=== PATIENT | male | born 1965 | race African-American/Black ===

== ENCOUNTER 2019-07-13 19:04 | Emergency (ER) | payer OTHER ==
--- OUTSIDE RECORDS SUMMARY | 2019-07-13 19:06 | XMS REPORT | Encounter Summary ---
:1965 Author Reason for Visit new patient; physical Instructions 1. History and physical examination, pre-employment Discussion Note RTC for any other concerns; counseled on diet and exercise Patient educational handouts: No information available. Plan of Care Patient Instructions ensure adequate rest, hydration and nutrition Reminders Provider Appointments None recorded. Lab None recorded. Referral None recorded. Procedures None recorded. Surgeries None recorded. Imaging None recorded. Medications No Medications Reported Medications Administered None recorded. Vitals Height Weight BMI Blood Pressure 74 in 225 lbs 6 oz 28.9 kg/m2 135/84 mm[Hg] Lab Results None recorded. Allergies Code Code System Name Reaction Severity Status Onset NKDA Problems None recorded. Procedures Date Name Performed by Revision of Repair of Rotator Cuff Information not available Vaccine List None recorded. Social History Smoking Status Never Smoker Past Encounters 09/15/2018 History and Physical Examination, Pre-employment [employer]: [address], [address], [place] [address], Ph. History of Present Illness Note: pt to clinic for pre-employment physical Review of Systems General Adult ROS Reported By: Patient Constitutional: Constitutional: no fever Cardiovascular: Cardiovascular: no chest pain, no palpitations Respiratory: Respiratory: no cough, no wheezing, no shortness of breath Gastrointestinal: Gastrointestinal: no abdominal pain, no vomiting, no diarrhea Musculoskeletal: Musculoskeletal: no muscle aches, no muscle weakness, no arthralgias/joint pain, no back pain, no swelling in the extremities Integumentary: Skin: no rashes Neurologic: Neurologic: no weakness, no numbness, no dizziness, no headaches Endocrine: Endocrine: no fatigue Physical Exam General Adult Exam - Male Reported By: Patient Constitutional: General Appearance: healthy-appearing, well-nourished, well-developed. Level of Distress: NAD. Ambulation: ambulating normally Psychiatric: Mental Status: active and alert Eyes: Pupils: PERRLA Lungs: Respiratory effort: no dyspnea. Auscultation: breath sounds normal, no wheezing Cardiovascular: Heart Auscultation: RRR, normal S1, normal S2, no murmurs. Pulses including femoral / pedal: normal throughout Abdomen: Bowel Sounds: normal. Inspection and Palpation: soft, non-distended, no tenderness, no guarding Musculoskeletal:: Motor Strength and Tone: normal, normal tone. Joints, Bones , and Muscles: normal movement of all extremities Neurologic: Gait and Station: normal gait. Cranial Nerves: grossly intact. Reflexes: DTRs 2+ bilaterally throughout Skin: Inspection and palpation: no rash Back: Thoracolumbar Appearance: normal curvature Notes: neuro nonfocal
[2019-07-13] MEDS ORDERED: IPRATROPIUM BROM 0.5MG/2.5ML ONE (19:43)
[2019-07-13] MEDS ORDERED: ALBUTEROL 2.5 MG/3 ML NEB SOL ONE (19:43)
[2019-07-13] MEDS ORDERED: IBUPROFEN 400 MG TAB ONE (19:43)
[2019-07-13] MEDS ORDERED: ACETAMINOPHEN 500 MG TAB ONE (19:43)
[2019-07-13] MEDS ORDERED: IBUPROFEN 200 MG TAB PO ONE (19:43)
--- NOTE | 2019-07-13 20:30 | RAD REPORT ---
EXAM DESCRIPTION: RAD - Chest Pa And Lat (2 Views) - 07/13/2019 7:47 pm CLINICAL HISTORY: COUGH, fever, congestion COMPARISON: None. TECHNIQUE: PA and lateral views of the chest were obtained. FINDINGS: The lungs are clear of an acute infiltrate. Minimal nodular focus lower right lung field i s believed be a small granuloma. Heart size is normal and central vasculature is within normal limi ts. No pleural effusion or pneumothorax seen. No acute bony finding noted. No aortic abnormality. IMPRESSION: No acute cardiopulmonary process.
--- NOTE | 2019-07-13 20:36 | ER ---
Nurse's Notes [facility] Name: Dino Gaston Sr Age: 54 yrs Sex: Male : 1965 Arrival Date: 07/13/2019 Time: 19:06 Bed 7 Private MD: Diagnosis: acute bronchitis Presentation: 07/13 19:15 Presenting complaint: Patient states: I have had a cough, congestion and fever for tl1 approx 3 days. My cough is painful and I am coughing up green stuff. Transition of care: patient was not received from another setting of care. Onset of symptoms was July 10, 2019. Risk Assessment: Do you want to hurt yourself or someone else? Patient reports no desire to harm self or others. Initial Sepsis Screen: Does the patient meet any 2 criteria? No. Patient's initial sepsis screen is negative. Does the patient have a suspected source of infection? No. Patient's initial sepsis screen is negative. Care prior to arrival: Medication(s) given: mucinex. 19:15 Method Of Arrival: Ambulatory tl1 19:15 Acuity: AMOR 3 tl1 Triage Assessment: 20:00 General: Appears in no apparent distress. comfortable, Behavior is calm, cooperative, ao appropriate for age. Pain: Complains of pain in chest. EENT: No signs and/or symptoms were reported regarding the EENT system. Neuro: Level of Consciousness is awake, alert, obeys commands, Oriented to person, place, time, situation, Appropriate for age Moves all extremities. Full function Speech is normal. 20:00 Cardiovascular: Heart tones S1 S2 Capillary refill < 3 seconds Patient's skin is warm ao and dry. Respiratory: Reports shortness of breath cough that is Onset: The symptoms/episode began/occurred gradually, the patient has mild shortness of breath. GI: No signs and/or symptoms were reported involving the gastrointestinal system. : No signs and/or symptoms were reported regarding the genitourinary system. Derm: No signs and/or symptoms reported regarding the dermatologic system. Musculoskeletal: No signs and/or symptoms reported regarding the musculoskeletal system. Historical: - Allergies: 19:17 No Known Allergies; tl1 - Home Meds: 19:17 None [Active]; tl1 - PMHx: 19:17 None; tl1 - PSHx: 19:17 shoulder surgery; tumor removal; tl1 - Immunization history:: Adult Immunizations unknown. - Social history:: Smoking status: unknown. - Ebola Screening: : Patient negative for fever greater than or equal to 101.5 degrees Fahrenheit, and additional compatible Ebola Virus Disease symptoms Patient denies exposure to infectious person Patient denies travel to an Ebola-affected area in the 21 days before illness onset. - Family history:: not pertinent. - Hospitalizations: : No recent hospitalization is reported. Screenin:00 Abuse screen: Denies threats or abuse. Denies injuries from another. Nutritional ao screening: No deficits noted. Tuberculosis screening: No symptoms or risk factors identified. Fall Risk None identified. Assessment: 20:00 General: Appears in no apparent distress. comfortable, well groomed, well developed, ao Behavior is calm, cooperative, appropriate for age. Pain: Complains of pain in abdomen Pain does not radiate. Pain currently is 5 out of 10 on a pain scale. Quality of pain is described as Pain began 3 hours ago. Neuro: Level of Consciousness is awake, alert, obeys commands, Oriented to person, place, time, situation, Appropriate for age Moves all extremities. Full function. Cardiovascular: Pulses are all present. Rhythm is regular. Respiratory: Airway is patent Respiratory effort is even, unlabored, Respiratory pattern is regular, symmetrical, Breath sounds are clear bilaterally. GI: No signs and/or symptoms were reported involving the gastrointestinal system. : No signs and/or symptoms were reported regarding the genitourinary system. EENT: No signs and/or symptoms were reported regarding the EENT system. 21:04 Reassessment: DC instructions given to patient patient agree with the POC and to follow ao up with PCP. Pt had no question at this time. Vital Signs: 19:17 BP 133 / 91; Pulse 77; Resp 20; Temp 98.9; Pulse Ox 97% on R/A; Weight 95.25 kg; Height tl1 6 ft. 2 in. (187.96 cm); Pain 6/10; 19:17 Body Mass Index 26.96 (95.25 kg, 187.96 cm) tl1 ED Course: 19:06 Patient arrived in ED. jg7 19:16 Triage completed. tl1 19:18 Boni Lucas MD is Attending Physician. wa 19:18 Arm band placed on right wrist. tl1 19:46 Mariee, Morales, RN is Primary Nurse. ao 20:00 Patient has correct armband on for positive identification. Placed in gown. Bed in low ao position. Call light in reach. Side rails up X 1. Pulse ox on. 20:00 No provider procedures requiring assistance completed. ao 20:35 Flu and/or RSV swab sent to lab. ds4 21:00 Patient did not have IV access during this emergency room visit. Patient maintains SpO2 ao saturation greater than 95% on room air. Administered Medications: 19:49 Drug: Motrin 600 mg Route: PO; ao 21:00 Follow up: Response: No adverse reaction; Pain is decreased ao 19:49 Drug: Albuterol - atroVENT (3:1) (2.5 mg - 0.5 mg) 3 ml Route: Nebulizer; ao 07/14 03:15 Follow up: Response: No adverse reaction ao 07/13 19:50 Drug: Tylenol 1000 mg Route: PO; ao 21:00 Follow up: Response: No adverse reaction ao Outcome: 20:35 Discharge ordered by . rubi 21:00 Discharged to home ambulatory. ao 21:00 Condition: stable 21:00 Discharge instructions given to patient, Instructed on discharge instructions, follow up and referral plans. Demonstrated understanding of instructions, follow-up care, medications, Prescriptions given X 3. 21:04 Patient left the ED. ao Signatures: Brad Carcamo ds4 Maryann Dejesus RN RN tl1 Morales Mariee, RN RN ao Boni Lucas MD MD wa Gutierrez, Jessica jg7
--- NOTE | 2019-07-13 20:36 | EDPHYS ---
Physician Documentation [facility] Name: Dino Gaston Sr Age: 54 yrs Sex: Male : 1965 Arrival Date: 07/13/2019 Time: 19:06 Bed 7 Private MD: ED Physician Boni Lucas HPI: 07/13 20:44 This 54 yrs old Black Male presents to ER via Ambulatory with complaints of Breathing wa Difficulty, Congestion, Flu Symptoms. 20:44 The patient has shortness of breath at rest. wa 20:44 The patient or guardian reports cough, that is constant, with productive sputum, that wa is green, difficulty breathing, flu symptoms, low-grade fever, myalgias. Onset: The symptoms/episode began/occurred 5 day(s) ago. Severity of symptoms: At their worst the symptoms were moderate, in the emergency department the symptoms are unchanged. Modifying factors: The symptoms are alleviated by nothing, the symptoms are aggravated by cough. Associated signs and symptoms: Pertinent positives: rhinorrhea, sore throat, Pertinent negatives: chest pain, diarrhea, fever, vomiting. The patient has not experienced similar symptoms in the past. The patient has not recently seen a physician. has been taking mucinex. Historical: - Allergies: 19:17 No Known Allergies; tl1 - Home Meds: 19:17 None [Active]; tl1 - PMHx: 19:17 None; tl1 - PSHx: 19:17 shoulder surgery; tumor removal; tl1 - Immunization history:: Adult Immunizations unknown. - Social history:: Smoking status: unknown. - Ebola Screening: : Patient negative for fever greater than or equal to 101.5 degrees Fahrenheit, and additional compatible Ebola Virus Disease symptoms Patient denies exposure to infectious person Patient denies travel to an Ebola-affected area in the 21 days before illness onset. - Family history:: not pertinent. - Hospitalizations: : No recent hospitalization is reported. ROS: 20:46 Eyes: Negative for injury, pain, redness, and discharge, Neck: Negative for injury, wa pain, and swelling, Cardiovascular: Negative for chest pain, palpitations, and edema, Abdomen/GI: Negative for abdominal pain, nausea, vomiting, diarrhea, and constipation, Back: Negative for injury and pain, : Negative for injury, bleeding, discharge, and swelling, MS/Extremity: Negative for injury and deformity, Skin: Negative for injury, rash, and discoloration, Neuro: Negative for headache, weakness, numbness, tingling, and seizure, Psych: Negative for depression, anxiety, suicide ideation, homicidal ideation, and hallucinations. 20:46 Constitutional: Positive for body aches, Negative for weight loss. 20:46 ENT: Positive for rhinorrhea, sinus congestion, sore throat, Negative for 20:46 Respiratory: Positive for cough, with green sputum, shortness of breath, at rest. Exam: 20:47 Constitutional: This is a well developed, well nourished patient who is awake, alert, wa and in no acute distress. Head/Face: Normocephalic, atraumatic. Eyes: Pupils equal round and reactive to light, extra-ocular motions intact. Lids and lashes normal. Conjunctiva and sclera are non-icteric and not injected. Cornea within normal limits. Periorbital areas with no swelling, redness, or edema. Neck: Trachea midline, no thyromegaly or masses palpated, and no cervical lymphadenopathy. Supple, full range of motion without nuchal rigidity, or vertebral point tenderness. No Meningismus. Chest/axilla: Normal chest wall appearance and motion. Nontender with no deformity. No lesions are appreciated. Cardiovascular: Regular rate and rhythm with a normal S1 and S2. No gallops, murmurs, or rubs. Normal PMI, no JVD. No pulse deficits. Abdomen/GI: Soft, non-tender, with normal bowel sounds. No distension or tympany. No guarding or rebound. No evidence of tenderness throughout. Back: No spinal tenderness. No costovertebral tenderness. Full range of motion. Skin: Warm, dry with normal turgor. Normal color with no rashes, no lesions, and no evidence of cellulitis. MS/ Extremity: Pulses equal, no cyanosis. Neurovascular intact. Full, normal range of motion. Neuro: Awake and alert, GCS 15, oriented to person, place, time, and situation. Cranial nerves II-XII grossly intact. Motor strength 5/5 in all extremities. Sensory grossly intact. Cerebellar exam normal. Normal gait. Psych: Awake, alert, with orientation to person, place and time. Behavior, mood, and affect are within normal limits. 20:47 ENT: External ear(s): are unremarkable, TM's: are normal, Posterior pharynx: erythema, that is moderate. 20:47 Respiratory: the patient does not display signs of respiratory distress, Respirations: normal, Breath sounds: coarse bilaterally, Respiratory rate: nml Vital Signs: 19: BP 133 / 91; Pulse 77; Resp 20; Temp 98.9; Pulse Ox 97% on R/A; Weight 95.25 kg; Height tl1 6 ft. 2 in. (187.96 cm); Pain 6/10; 19:17 Body Mass Index 26.96 (95.25 kg, 187.96 cm) tl1 MDM: 19:18 Patient medically screened. ia 20:48 Differential Diagnosis: Bronchitis Influenza Upper Respiratory Infection Pharyngitis wa Viral Syndrome Pneumonia. Data reviewed: vital signs, nurses notes. Test interpretation: by ED physician or midlevel provider: CXR nml. Response to treatment: the patient's symptoms have markedly improved after treatment. 07/13 19:29 Order name: Flu ia 07/13 19:29 Order name: Chest Pa And Lat (2 Views) XRAY ia 07/13 20:35 Order name: RAD; Complete Time: 20:49 EDMS Administered Medications: 19:49 Drug: Motrin 600 mg Route: PO; ao 21:00 Follow up: Response: No adverse reaction; Pain is decreased ao 19:49 Drug: Albuterol - atroVENT (3:1) (2.5 mg - 0.5 mg) 3 ml Route: Nebulizer; ao 07/14 03:15 Follow up: Response: No adverse reaction ao 07/13 19:50 Drug: Tylenol 1000 mg Route: PO; ao 21:00 Follow up: Response: No adverse reaction ao Disposition: 07/13/19 20:35 Discharged to Home. Impression: acute bronchitis. - Condition is Stable. - Discharge Instructions: Acute Bronchitis, [id number]. - Prescriptions for Prednisone 20 mg Oral Tablet - take 1 tablet by ORAL route once daily for 5 days; 5 tablet. Albuterol Sulfate 90 mcg/actuation - inhale 1-2 puff by INHALATION route every 4-6 hours; 1 Inhaler. cetirizine 10 mg Oral tablet - take 1 tablet by ORAL route once daily for 5 days; 5 tablet. Ibuprofen 600 mg Oral Tablet - take 1 tablet by ORAL route every 8 hours As needed take with food; 20 tablet. - Medication Reconciliation Form, Thank You Letter, Antibiotic Education, Prescription Opioid Use form. - Follow up: Private Physician; When: 2 - 3 days; Reason: Recheck today's complaints. - Problem is new. - Symptoms have improved. - Notes: take medication as prescribed. return if worsening. follow up with primary care for further check up within 2 days Signatures: Dispatcher [employer] EDKY Maryann Dejesus RN RN tl1 Morales Mariee RN RN ao [facility] wa Corrections: (The following items were deleted from the chart) 21:04 20:35 07/13/2019 20:35 Discharged to Home. Impression: acute bronchitis. Condition is ao Stable. Forms are Medication Reconciliation Form, Thank You Letter, Antibiotic Education, Prescription Opioid Use. Follow up: Private Physician; When: 2 - 3 days; Reason: Recheck today's complaints. Problem is new. Symptoms have improved. wa
[2019-07-13 21:19] VITALS: BP 133/91; TEMP 98.9; O2SAT 97
== END 2019-07-13 21:04 | disposition home or self-care (01) ==
LOC: ER 19:04
DX: J20.9 Acute bronchitis, unspecified (principal)
CPT/HCPCS: 71046; 87804; 94640; 99285

== ENCOUNTER 2024-04-02 15:20 | Emergency (ER) | payer OTHER ==
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
[2024-04-02 16:30] LABS: SARS-CoV-2 Antigen CONTROL BLUE LINE VIS/BG OK; SARS-CoV-2 Antigen Rapid Res Negative (Negative)
--- NOTE | 2024-04-02 16:33 | RAD REPORT ---
EXAM DESCRIPTION: RAD - Chest Pa And Lat (2 Views) - 04/02/2024 3:49 pm CLINICAL HISTORY: Cough;Fever COMPARISON: Chest Pa And Lat (2 Views) dated 07/13/2019 TECHNIQUE: PA and lateral views of the chest were obtained. FINDINGS: The lungs are clear. Heart size is normal and central vasculature is within normal limits. No pleural effusion or pneumothorax seen. No acute bony finding noted. IMPRESSION: No acute cardiopulmonary process.
--- NOTE | 2024-04-02 17:00 | ER ---
Nurse's Notes [facility] Name: Dino Gaston Age: 59 yrs Sex: Male : 1965 Arrival Date: 04/02/2024 Time: 15:20 Bed IW3 Private MD: Diagnosis: Acute upper respiratory infection, unspecified Presentation: 04/02 15:37 Chief complaint: Patient states: Cough and fever X 2 days. Coronavirus screen: At this ld1 time, the client does not indicate any symptoms associated with coronavirus-19. Ebola Screen: No symptoms or risks identified at this time. Initial Sepsis Screen: Does the patient meet any 2 criteria? No. Patient's initial sepsis screen is negative. Does the patient have a suspected source of infection? No. Patient's initial sepsis screen is negative. Risk Assessment: Do you want to hurt yourself or someone else? Patient reports no desire to harm self or others. Onset of symptoms was April 02, 2024 at 15:38. 15:37 Method Of Arrival: Ambulatory ld1 15:37 Acuity: AMOR 4 ld1 Triage Assessment: 15:37 General: Appears in no apparent distress. comfortable, Behavior is calm, cooperative, ld1 appropriate for age. Pain: Denies pain. EENT: No signs and/or symptoms were reported regarding the EENT system. Neuro: Level of Consciousness is awake, alert, obeys commands, Oriented to person, place, time, situation. Cardiovascular: Capillary refill < 3 seconds Patient's skin is warm and dry. Respiratory: Airway is patent Respiratory effort is even, unlabored. Respiratory: Reports cough that is non-productive. GI: Abdomen is flat, non-distended. : No signs and/or symptoms were reported regarding the genitourinary system. Historical: - Allergies: 15:37 No Known Allergies; ld1 - Home Meds: 15:37 None [Active]; ld1 - PMHx: 15:37 None; ld1 - PSHx: 15:37 None; ld1 - Immunization history:: Adult Immunizations up to date. - Infectious Disease History:: Denies. - Social history:: Smoking status: Patient denies any tobacco usage or history of. Screenin:18 [facility] ED Fall Risk Assessment (Adult) History of falling in the last 3 months, ld1 including since admission No falls in past 3 months (0 pts) Confusion or Disorientation No (0 pts) Intoxicated or Sedated No (0 pts) Impaired Gait No (0 pts) Mobility Assist Device Used No (0 pt) Altered Elimination No (0 pt) Score/Fall Risk Level 0 - 2 = Low Risk Oriented to surroundings, Maintained a safe environment, Educated pt \T\ family on fall prevention, incl call for assistance when getting out of bed, Assessed \T\ reinforced patient's understanding of fall precautions, Provided non-skid footwear, Hourly rounding (assess needs \T\ fall precautionary measures) done, Used ambulatory aids as needed (educated on \T\ assisted with), Used gait belt as appropriate. Abuse screen: Denies threats or abuse. Denies injuries from another. Nutritional screening: No deficits noted. Tuberculosis screening: No symptoms or risk factors identified. Assessment: 17:18 Reassessment: See triage assessment. ld1 Vital Signs: 15:37 BP 123 / 87; Pulse 84; Resp 18; Temp 98.4(TE); Pulse Ox 98% on R/A; Weight 90.72 kg; ld1 Height 6 ft. 2 in. ; Pain 0/10; 15:37 Body Mass Index 25.68 (90.72 kg, 187.96 cm) ld1 15:37 Pain Scale: Adult ld1 ED Course: 15:25 Patient arrived in ED. ra3 15:27 Kurtis Damico DO is Attending Physician. ms3 15:37 Arm band placed on right wrist. ld1 15:38 Triage completed. ld1 15:38 SARS RAPID Sent. ld1 15:38 Flu Sent. ld1 15:51 Chest Pa And Lat (2 Views) XRAY In Process Unspecified. EDMS 17:00 Иван Sotelo DO is Referral Physician. ms3 17:18 Patient has correct armband on for positive identification. Placed in gown. Bed in low ld1 position. Call light in reach. Side rails up X2. Pulse ox on. NIBP on. Door closed. Noise minimized. 17:18 No provider procedures requiring assistance completed. Patient did not have IV access ld1 during this emergency room visit. Administered Medications: No medications were administered Medication: 17:18 VIS not applicable for this client. ld1 Outcome: 17:00 Discharge ordered by . ms3 17:18 Discharged to home ambulatory, ld1 17:18 Condition: stable 17:18 Discharge instructions given to patient, Instructed on discharge instructions, follow up and referral plans. Demonstrated understanding of instructions, follow-up care, medications, Prescriptions given X 2, 17:19 Patient left the ED. ld1 Signatures: Dispatcher [employer] EDMS Kurtis Damico, DO ms3 Lina Damico RN RN ld1 Dipika Delacruz ra3
--- NOTE | 2024-04-02 17:00 | EDPHYS ---
Physician Documentation [facility] Name: Dino Gaston Age: 59 yrs Sex: Male : 1965 Arrival Date: 04/02/2024 Time: 15:20 Bed IW3 Private MD: ED Physician Kurtis Damico HPI: 04/02 16:06 This 59 yrs old Black Male presents to ER via Ambulatory with complaints of Fever, ms3 Cough. 16:06 59-year-old male with no past medical history presents to the emergency department for ms3 cough, fever, chills, body aches that began on Friday. Patient states his discomfort is an 8/10. Patient denies any alleviating or inciting factors.. Historical: - Allergies: 15:37 No Known Allergies; ld1 - Home Meds: 15:37 None [Active]; ld1 - PMHx: 15:37 None; ld1 - PSHx: 15:37 None; ld1 - Immunization history:: Adult Immunizations up to date. - Infectious Disease History:: Denies. - Social history:: Smoking status: Patient denies any tobacco usage or history of. ROS: 16:06 Cardiovascular: Negative for chest pain, and palpitations. ms3 16:06 Abdomen/GI: Negative for abdominal pain, nausea, vomiting, diarrhea, and constipation, MS/Extremity: Negative for injury and deformity, Skin: Negative for injury, rash, and discoloration, 16:06 Constitutional: Positive for body aches, chills, fever, 16:06 Respiratory: Positive for cough, Exam: 16:06 Constitutional: This is a well developed, well nourished patient who is awake, alert, ms3 and in no acute distress. Head/Face: Normocephalic, atraumatic. Chest/axilla: Normal chest wall appearance and motion. Nontender with no deformity. Cardiovascular: Regular rate and rhythm with a normal S1 and S2. No gallops, murmurs, or rubs. Normal PMI, no JVD. No pulse deficits. Abdomen/GI: Soft, non-tender, with normal bowel sounds. No distension or tympany. No guarding or rebound. No evidence of tenderness throughout. Skin: Warm, dry with normal turgor. Normal color with no rashes, no lesions, and no evidence of cellulitis. 16:06 Respiratory: the patient does not display signs of respiratory distress, Respirations: normal, Breath sounds: wheezing: expiratory that is mild, Vital Signs: 15:37 BP 123 / 87; Pulse 84; Resp 18; Temp 98.4(TE); Pulse Ox 98% on R/A; Weight 90.72 kg; ld1 Height 6 ft. 2 in. ; Pain 0/10; 15:37 Body Mass Index 25.68 (90.72 kg, 187.96 cm) ld1 15:37 Pain Scale: Adult ld1 MDM: 15:37 Patient medically screened. ms3 16:06 Differential diagnosis: viral Infection, URI, pneumonia Flu versus COVID. ms3 17:54 Data reviewed: vital signs, nurses notes, lab test result(s), radiologic studies, and ms3 as a result, I will discharge patient. Independent interpretation of the following test(s) in the Emergency Department X-Ray: My interpretation is Chest x-ray images reviewed by me did not reveal pneumonia. Counseling: I had a detailed discussion with the patient and/or guardian regarding the historical points, exam findings, and any diagnostic results supporting the discharge/admit diagnosis, lab results, radiology results, the need for outpatient follow up, to return to the emergency department if symptoms worsen or persist or if there are any questions or concerns that arise at home. Special discussion: I discussed with the patient/guardian in detail that at this point there is no indication for admission to the hospital. It is understood, however, that if the symptoms persist or worsen the patient needs to return immediately for re-evaluation. ED course: Discussed negative chest x-ray, flu, COVID with patient. Patient to follow-up with primary care physician in 2 to 3 days. Patient understands and agrees with plan. All questions were answered. Patient given prescription for albuterol and Tessalon Perles. 04/02 15:33 Order name: Flu; Complete Time: 16:57 ms3 04/02 15:33 Order name: SARS RAPID; Complete Time: 16:57 ms3 04/02 15:33 Order name: Chest Pa And Lat (2 Views) XRAY; Complete Time: 16:57 ms3 Administered Medications: No medications were administered Disposition Summary: 04/02/24 17:00 Discharge Ordered Notes: Location: Home ms3 Condition: Stable ms3 Diagnosis - Acute upper respiratory infection, unspecified ms3 Followup: ms3 - With: Иван Sotelo DO - When: 2 - 3 days - Reason: Recheck today's complaints Discharge Instructions: - Discharge Summary Sheet ms3 - Upper Respiratory Infection, Adult ms3 Forms: - Medication Reconciliation Form ms3 - Antibiotic Education ms3 - Prescription Opioid Use ms3 - Patient Portal Instructions ms3 - Leadership Thank You Letter ms3 Prescriptions: - albuterol sulfate 90 mcg/actuation Inhalation HFA Aerosol Inhaler - inhale 2 inhalation INHALATION route every 4 to 6 hours as needed for shortness ms3 of breath or wheezing; 1 unit; Refills: 0, Product Selection Permitted - benzonatate 200 mg Oral capsule - take 1 capsule ORAL route 3 times per day as needed; 20 capsule; Refills: 0, ms3 Product Selection Permitted Signatures: Dispatcher [employer] EDKurtis Ramos DO DO ms3 Lina Damico RN RN ld1 Corrections: (The following items were deleted from the chart) 15:34 15:34 Influenza Screen (A \T\ B)+BA.LAB.BRZ ordered. EDMS EDMS 15:34 15:34 SARS-COV-2 Antigen Rapid+I.LAB.BRZ ordered. EDMS EDMS 15:34 15:34 Chest Pa And Lat (2 Views)+RAD.RAD.BRZ ordered. EDMS EDMS
[2024-04-02 17:34] VITALS: BP 123/87; TEMP 98.4; O2SAT 98
== END 2024-04-02 17:19 | disposition home or self-care (01) ==
LOC: ER 15:20
DX: J06.9 Acute upper respiratory infection, unspecified (principal); Z11.52 Encounter for screening for COVID-19
CPT/HCPCS: 36415; 71046; 87804; 87811; 99283